=== PATIENT | female | born 1995 | race Two or more races ===

== ENCOUNTER 2019-06-19 19:30 | Emergency (ER) | payer SELFPAY ==
[2019-06-19 20:03] VITALS: BP 131/91
[2019-06-19] MEDS ORDERED: DEXAMETHASONE SOD PHOS INJ 10 MG/1 ML VIAL IV ONE (20:50)
[2019-06-19] MEDS ORDERED: DIPHENHYDRAMINE HCL 50 MG/ML VIAL IV ONE (20:50)
[2019-06-19] MEDS ORDERED: PROCHLORPERAZINE EDISYLATE INJ 10 MG/2 ML VIAL IV ONE (20:50)
[2019-06-19] MEDS ORDERED: NORMAL SALINE 500 ML IV ONE (20:53)
--- NOTE | 2019-06-19 20:53 | ER Document Report ---
ED General - General Chief Complaint: Headache, Worst Ever Stated Complaint: HEADACHE,NUMBNES RIGHT SIDE,VOMITING Time Seen by Provider: 06/19/19 20:37 - HPI Notes: 23-year-old female with a long-standing history of migraines presents with headache. Patient describes gradual onset today headache, right frontotemporal. More severe than normal, transient feeling of vague numbness on her face that lasted approximately an hour and abated. No trauma. Uses [id number] migraine medicine without success. No thunderclap or sudden onset. No personal or family history of subarachnoid hemorrhage. No other modifying factors, no other associated symptoms, no other provocative or palliative factors. - Related Data Allergies/Adverse Reactions: No Known Allergies Allergy (Unverified 06/19/19 20:02) Past Medical History - Social History Smoking Status: Unknown if Ever Smoked Frequency of alcohol use: None Family History: Reviewed & Not Pertinent - Medical History Medical History: Other - Includes migraine headaches Review of Systems - Review of Systems Notes: Review of systems as in the history of present illness, otherwise negative x 10 systems. Physical Exam - Vital signs Vitals: Temp Pulse Resp BP Pulse Ox 97.7 F 89 16 131/91 H 100 06/19/19 20:01 06/19/19 20:01 06/19/19 20:01 06/19/19 20:01 06/19/19 20:01 - Notes Notes: General: Well developed, well nourished. HEENT: Normocephalic, atraumatic. PEERL. No conjunctival injection. Neck: Supple, no significant adenopathy. No meningismus. Chest: Clear bilaterally, good air entry. Abdomen: Soft, non-tender, nondistended. Back: Non-tender. Normal ROM Extremities: No cyanosis, clubbing or edema. Vascular: Symmetric peripheral pulses, normal capillary refill. Skin: No significant rash. No petechiae or purpura. Motor: Normal tone and power. Symmetric. Neurologic: Alert and oriented to person place and time. Cranial nerves II-12 are intact. Sensation intact and symmetric in the upper and lower extremities. No cerebellar findings including finger-nose testing. No clonus. Gait normal. Funduscopic exam shows crisp disc margins, no evidence of papilledema. Course - Re-evaluation Re-evalutation: 08/12/19 20:53 This is a well-appearing 23-year-old female likely status migraine, consider a mild complex vascular migraine. My suspicion for acute intracranial injury such as bleed is very low. Plan to proceed with prochlorperazine, diphenhydramine, Decadron, sterile exam and reevaluate. Will give IV fluid. Check test. 06/19/19 22:11 test is negative. Patient has had marked and complete resolution of her headache. Serial exam showed normal benign neurologic examination. Discharged home to follow close with her primary care physician, return if worsening. - Vital Signs Vital signs: Temp Pulse Resp BP Pulse Ox 97.7 F 89 16 131/91 H 100 06/19/19 20:01 06/19/19 20:01 06/19/19 20:01 06/19/19 20:01 06/19/19 20:01 Discharge - Discharge Clinical Impression: Migraine Qualifiers: Migraine type: unspecified Status migrainosus presence: with status migrainosus Intractability: intractable Qualified Code(s): G43.911 - Migraine, unspecified, intractable, with status migrainosus Condition: Stable Disposition: HOME, SELF-CARE Instructions: Migraine Headache ([facility]) Additional Instructions: Follow-up with your primary care physician over the next several days. Return if worsening.
== END 2019-06-19 23:01 | disposition home or self-care (01) ==
LOC: ER 19:30
DX: G43.911 Migraine, unspecified, intractable, with status migrainosus (principal); R20.0 Anesthesia of skin; R11.10 Vomiting, unspecified
CPT/HCPCS: 81025; J1200; J0780; J7040; J1100; 96361; 96374; 96375; 99284